=== PATIENT | female | born 1990 | race American Indian/Alaskan Native ===

== ENCOUNTER 2017-08-25 08:11 | Day surgery (SDC) | payer BC ==
[~2017-08-25 08:11] MED LIST: NACL 0.9% IR ONE; SORBITOL-MANNITOL IRRIG IR ONE
--- NOTE | 2017-08-25 08:51 | Short Stay Summary ---
Short Stay Documentation Date of service: 08/25/17 Narrative H&P: Patient is a 27 year old G1 who presented with complaint of persistent vaginal bleeding over 4 months. She had tried multiple medical interventions with no relief. She is consented for D&C with hysteroscopy - History Principal diagnosis: DUB H&P: obtained from office Past Medical History: No medical history Past Surgical History: No surgical history Social history: single - Allergies and Medications Current Medications: Allergies No Known Allergies Allergy (Unverified 08/19/17 15:45) Home Medications Medication Instructions Recorded Confirmed Last Taken Type Amoxicillin [Amoxicillin] 500 mg PO QID 08/19/17 08/19/17 Unknown History Tramadol HCl/Acetaminophen 2 each PO Q6HR PRN 08/19/17 08/19/17 Unknown History [Ultracet] Active Medications Cefazolin Sodium (Ancef/Sterile Water 2 Gm/20 Ml) 2 gm in 20 mls @ 80 mls/hr IV PREOP NR PRN Reason: Protocol - Physical exam General appearance: no acute distress Lungs: Clear to auscultation, Normal air movement Heart: Regular rate, Normal S1, Normal S2 Gastrointestinal: normal, normoactive bowel sounds Female Genitourinary: normal - Brief post op/procedure progress note Date of procedure: 08/25/17 Pre-op diagnosis: AUB Post-op diagnosis: same Procedure: D&C with hysteroscopy Anesthesia: MAC Findings: shaggy endometrium Surgeon: BLAKE DALY Estimated blood loss: minimal Pathology: list (endometrial curretings) Specimen disposition: to lab Condition: stable - Hospital course Hospital course: unremarkable - Disposition Condition at discharge: Good Disposition: DC-01 TO HOME OR SELFCARE Short Stay Discharge Plan Activity: advance as tolerated Weight Bearing Status: Weight Bear as Tolerated Diet: regular Follow up with: BLAKE DALY MD [Staff Physician] - 14 Days Prescriptions: HYDROcodone/APAP 7.5-325 [Fernley 7.5-325 mg TAB] 1 each PO Q6HR PRN #25 tablet PRN Reason: Pain
[2017-08-25] MEDS ORDERED: SILVER NITRATE TP ONE (08:59)
[2017-08-25] MEDS ORDERED: ANCEF/STERILE WATER 2 GM/20 ML 2 GM/20 ML SYRINGE IV NR (09:00)
--- NOTE | 2017-08-25 09:02 | Anesthesia Day of Surgery ---
Anesthesia Day of Surgery - Day of Surgery Patient Examined: Yes Patient H&P Reviewed: Yes Patient is NPO: Yes
--- NOTE | 2017-08-25 09:02 | Anesthesia Consultation ---
Anesthesia Consult and Med Hx Date of service: 08/25/17 - Airway Anesthetic Teeth Evaluation: Good ROM Head & Neck: Adequate Mental/Hyoid Distance: Adequate Mallampati Class: Class III Intubation Access Assessment: Possibly Difficult - Pre-Operative Health Status ASA Pre-Surgery Classification: ASA3 Proposed Anesthetic Plan: General - Pulmonary Hx Smoking: Yes (occas) - Central Nervous System Hx Psychiatric Problems: No - Other Systems Hx Alcohol Use: Yes (occas) Hx Cancer: No Hx Obesity: Yes (BMI 45.7)
[2017-08-25] MEDS ORDERED: VERSED IV NR (09:30)
[2017-08-25] MEDS ORDERED: PEPCID IV NR (09:30)
[2017-08-25] MEDS ORDERED: XYLOCAINE MPF 2% ONE (09:44)
[2017-08-25] MEDS ORDERED: DILAUDID ONE (09:44)
[2017-08-25] MEDS ORDERED: DIPRIVAN 10 MG/ML IV ONE (09:44)
[2017-08-25] MEDS ORDERED: NACL 0.9% IR ONE ×2 (09:49)
[2017-08-25] MEDS ORDERED: LACTATED RINGERS 1,000 ML IV SCH (10:00)
[2017-08-25] MEDS ORDERED: ZOFRAN ONE (10:36)
[2017-08-25] MEDS ORDERED: TORADOL ONE (10:36)
[2017-08-25] MEDS ORDERED: SUBLIMAZE IV PRN ×2 (11:00→11:01)
[2017-08-25] MEDS ORDERED: DILAUDID IV PRN (11:01)
--- NOTE | 2017-08-25 11:02 | Post Anesthesia Evaluation ---
- Post Anesthesia Evaluation Patient Participated: Yes Airway Patent: Yes Stable Respiratory Function: Yes Nausea/Vomiting: No Temp > 96.8F: Yes Pain Manageable: Yes Adequeate Hydration: Yes Anesthesia Complications: No
[2017-08-25] MEDS ORDERED: NORCO 5/325 PO PRN (11:42)
[2017-08-25 12:09] VITALS: BP 116/68
--- NOTE | 2017-09-08 09:02 | Operative Report ---
Operative Report Operative Report: Preoperative diagnoses: Menorrhagia Postoperative diagnosis: Same Procedure: D&C with hysteroscopy Surgeon: Fela Moses M.D. Anesthesia: MAC EBL: Minimal Urine output: 100 mL clear Complications: None Specimens: Endometrial curettings Procedure: Patient was taken to the OR with IV running and in place. She was properly identified as herself. She was given adequate anesthesia. She was then placed in the dorsal lithotomy position and prepped and draped in normal sterile fashion. Attention was turned to the patient's vagina. Her bladder was then drained of approximately 100 mL of clear yellow urine. A bivalve speculum was placed the patient's vagina. Cervix was visualized and grasped with a single-tooth tenaculum. The cervix was then gently dilated up to approximately 21 mm. Following this, the hysteroscope was introduced into the patient's uterus. Both ostia were visualized and there was no obvious uterine pathology. Following this a sharp curettage performed with a banjo curette until there was a gritty texture noted in all 4 quadrants of the uterus. There was excellent hemostasis noted at the end of this portion of the procedure. At this point all instruments were removed from the patient's vagina. She was then awakened and taken to recovery in stable condition. She tolerated the procedure well
== END 2017-08-25 12:40 | disposition home or self-care (01) ==
LOC: OR 08:11
PROVIDERS: ATTEND Obstetrics & Gynecology
DX: N85.8 Other specified noninflammatory disorders of uterus (principal); N92.0 Excessive and frequent menstruation with regular cycle; E66.9 Obesity, unspecified; Z68.42 Body mass index [BMI] 45.0-49.9, adult; F17.200 Nicotine dependence, unspecified, uncomplicated
CPT/HCPCS: 58558; 81025; 88305; A4217; J0690; J1170; J1885; J2250; J2405; J2704; J3010; J7120